=== PATIENT | male | born 1985 | race Caucasian/White ===

== ENCOUNTER 2022-08-05 14:17 | Outpatient (CLI) | payer MEDICARE, MEDICAID, SELFPAY ==
--- NOTE | ~2022-08-05 | XR_ITS ---
XR abdomen/kub 1V 08/05/2022 14:45 Indication: Malignant neoplasm of the kidney Procedure: KUB Comparison: No prior studies for comparison. Findings: There are cholecystectomy clips. There are surgical changes of left nephrectomy. There is a n amorphous coarse calcification in the right upper abdomen, nonspecific. Nonobstructive bowel gas pa ttern. No focal lytic or blastic lesions. Mild lumbar spondylosis. There is atherosclerosis in the pe lvis. There is embolization coil in the right pelvis overlying the sacrum. Impression: 1: No acute abdominal abnormality. Reviewed, dictated and finalized at location L. Impression: 1: No acute abdominal abnormality.
--- NOTE | ~2022-08-05 | CT_ITS ---
EXAMINATION: CT abdomen pelvis wo con DATE: 08/05/2022 14:39 INDICATION: Malignant neoplasm of right kidney. TECHNIQUE: Computed tomography (CT) of the abdomen and pelvis was performed without intravenous contr ast. Automated exposure control and iterative reconstruction technique were employed. The dose-length product was 933.84 mGy-cm. COMPARISON: None. FINDINGS: The visualized portions of the lung bases demonstrate minimal atelectasis. No pleural effus ion. The heart size is normal. There are coronary artery calcifications. No pericardial effusion. The liver and spleen are normal. There are changes of cholecystectomy. The pancreas and right adrenal gl and are normal. There is a 16 mm mass in right adrenal gland measuring low-attenuation, consistent wi th a myelolipoma. There are changes of left nephrectomy. There are numerous cysts in right kidney sonya suring up to 2.7 cm. There is a 2.5 cm mass in right kidney measuring soft tissue attenuation. The pr ostate is mildly enlarged. There are no dilated loops of bowel. The appendix is normal. There are wid espread arterial calcifications. There are no pathologically enlarged lymph nodes. There is no free i ntraperitoneal fluid. There is mild thoracic and lumbar spondylosis. There is scarring in right anter ior abdominal wall. IMPRESSION: 1. 2.5 cm mass in right kidney that may be a hemorrhagic cyst or less likely a solid neoplasm. Abdome n MRI without and with contrast is recommended. Reviewed, dictated and finalized at location A. IMPRESSION: 1. 2.5 cm mass in right kidney that may be a hemorrhagic cyst or less likely a solid neoplasm. Abdomen MRI without and with contrast is recommended.
== END 2022-08-05 14:18 | disposition home or self-care (01) ==
LOC: ANHIMG 14:24
PROVIDERS: Visit Provider Urology
DX: N20.0 Calculus of kidney (principal)
CPT/HCPCS: 74018; 74176

== ENCOUNTER 2022-11-17 14:48 | Outpatient (CLI) | payer MEDICARE, MEDICAID, SELFPAY ==
--- NOTE | ~2022-11-17 | XR_ITS ---
XR chest 2V 11/17/2022 15:01 Indication: Chest discomfort Procedure: PA and lateral views of the chest Comparison: No prior studies for comparison. Findings: Borderline heart size normal. No focal air space disease, pulmonary edema, pleural effusion or suspected pneumothorax. There are cholecystectomy clips. Impression: 1: No acute cardiopulmonary disease. Reviewed, dictated and finalized at location B. Impression: 1: No acute cardiopulmonary disease.
== END 2022-11-17 14:49 | disposition home or self-care (01) ==
LOC: ANHIMG 14:50
PROVIDERS: Visit Provider Internal Medicine Nephrology
DX: R07.89 Other chest pain (principal)
CPT/HCPCS: 71046

== ENCOUNTER 2023-06-23 14:43 | Outpatient (CLI) | payer MEDICARE, MEDICAID, SELFPAY ==
--- NOTE | ~2023-06-23 | CT_ITS ---
EXAMINATION: CTA chest PE protocol DATE: 06/23/2023 15:14 INDICATION: Pleuritic chest pain. TECHNIQUE: Computed tomography angiography (CTA) of the chest was performed with 100 mL Omnipaque-350 intravenous contrast timed to evaluate the pulmonary arteries. Coronal maximum intensity projection 3D-reconstructions were created by the technologist. Automated exposure control and iterative reconst ruction technique were employed. The dose-length product was 707.27 mGy-cm. COMPARISON: None. FINDINGS: The visualized portions of the lung bases demonstrate mild atelectasis. No pleural effusion . The heart size is normal. There is a large pericardial effusion. There are coronary artery calcific ations. There is no pulmonary embolus. There are changes of cholecystectomy. There is ascites in the upper abdomen. There is a 1.5 cm mass in right adrenal gland measuring low-attenuation without change , likely an adenoma. There is bilateral gynecomastia. 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 There is mild thoracic spondylosis. IMPRESSION: 1. Large pericardial effusion. 2. No pulmonary embolus. 3. Ascites. 4. 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 Reviewed, dictated and finalized at location E.
== END 2023-06-23 14:44 ==
PROVIDERS: PCP Internal Medicine Nephrology; Visit Provider Internal Medicine Nephrology
DX: R07.81 Pleurodynia (principal); R79.89 Other specified abnormal findings of blood chemistry; I31.39 Other pericardial effusion (noninflammatory)
CPT/HCPCS: 71275; Q9967